=== PATIENT | female | born 1995 | race African-American/Black ===

== ENCOUNTER 2019-04-05 | Emergency (ER) | payer SELFPAY ==
[~2019-04-05] VITALS: Ht 157.5 cm; Wt 73.0 kg
[2019-04-05 03:57] LABS: CLARITY URINE CLEAR (CLEAR); COLOR URINE YELLOW (YELLOW); KETONES URINE NEGATIVE (NEGATIVE); LEUKOCYTE ESTERASE URINE 2+ (NEGATIVE); NITRITE URINE NEGATIVE (NEGATIVE); OCCULT BLOOD URINE 1+ (NEGATIVE); PH URINE 7.5 (4.5-8.0); PROTEIN URINE 1+ (NEGATIVE); SPECIFIC GRAVITY URINE 1.021 (1.005-1.030)
[2019-04-05] MEDS ORDERED: IBUPROFEN 200MG TABLET ONE (06:03)
[2019-04-05 06:40] VITALS: BP 137/78
[2019-04-05] MEDS ORDERED: ACETAMINOPHEN 325MG TABLET PO ONE (06:45)
== END 2019-04-05 06:49 | disposition home or self-care (01) ==
LOC: ER
DX: N39.0 Urinary tract infection, site not specified (principal); J45.909 Unspecified asthma, uncomplicated; F17.200 Nicotine dependence, unspecified, uncomplicated; Z98.890 Other specified postprocedural states
CPT/HCPCS: 81003; 81025; 87077; 87086; 87186; 99283; Z7610

== ENCOUNTER 2019-06-27 17:59 | Emergency (ER) | payer MEDICAID ==
[~2019-06-27] VITALS: Ht 157.5 cm; Wt 72.0 kg
[2019-06-27 18:13] VITALS: BP 101/67
== END 2019-06-27 21:00 | disposition left against medical advice (07) ==
LOC: ER 17:59
DX: O26.851 Spotting complicating pregnancy, first trimester (principal)